=== PATIENT | male | born 1955 | race Caucasian/White ===

== ENCOUNTER 2016-11-24 22:30 | Inpatient (IN) | payer OTHER ==
[~2016-11-24] VITALS: Ht 175.3 cm; Wt 86.7 kg
[~2016-11-24 22:30] MED LIST: ALLOPURINOL100 MG PO; AMLODIPINE10 M1 PO; FOSRENOL1000 MG PO; GLIPIZIDE10 MG PO; HYDROCHLOROTH12.5 MG PO; TIMOPTIC OCUDOSE0.5% OP; TRAVATAN Z5 ML OP
[2016-11-24 23:44] LABS: BASOPHIL % 0.6 % (0-2); PLATELET COUNT 174 x10^3mcL (130-400)
[2016-11-24 23:45] LABS: RED CELL DISTRIBUTION WIDTH 15.7 % (11.5-14.5)
[2016-11-25 00:01] LABS: BILIRUBIN TOTAL 0.76 mg/dL (0.20-1.00); CALCIUM 9.2 mg/dL (8.5-10.1); CARBON DIOXIDE 25.9 mmol/L (21-32); POTASSIUM SERUM 4.1 mmol/L (3.5-5.1); TOTAL PROTEIN, SERUM 7.5 g/dL (6.4-8.2)
[2016-11-25 00:10] LABS: ALBUMIN 2.9 g/dL (3.4-5.0)
[2016-11-25 00:11] LABS: CREATININE SERUM 7.9 mg/dL (0.7-1.3)
[2016-11-25 01:55] VITALS: BP 179/76
[2016-11-25 02:18] LABS: CHOLESTEROL/HDL RATIO 3.9
[2016-11-25 02:21] LABS: T3 TOTAL 0.68 ng/mL
[2016-11-25 02:28] LABS: FREE THYROXINE INDEX 2.7 ug/dL (1.4-4.5); T4(THYROXINE) 8.1 ug/dL (4.7-13.3)
[2016-11-25 06:09] LABS: BASOPHIL % 0.4 % (0-2); PLATELET COUNT 195 x10^3mcL (130-400)
[2016-11-25 06:42] LABS: RED CELL DISTRIBUTION WIDTH 15.4 % (11.5-14.5)
[2016-11-25 06:47] LABS: CALCIUM 8.7 mg/dL (8.5-10.1); CARBON DIOXIDE 27.2 mmol/L (21-32); MAGNESIUM 3.2 mg/dL (1.8-2.4); PHOSPHOROUS 5.1 mg/dL (2.5-4.9); POTASSIUM SERUM 4.3 mmol/L (3.5-5.1)
[2016-11-25 06:49] LABS: CREATININE SERUM 8.5 mg/dL (0.7-1.3)
[2016-11-26] MEDS ORDERED: CARVEDILOL12.5 M1 PO (23:36)
[2016-11-26] MEDS ORDERED: TIMOPTIC OCUMET10 ML OU (23:36)
[2016-11-26] MEDS ORDERED: ALPRAZOLAM2 MG PO (23:39)
[2016-11-26] MEDS ORDERED: GLUCOTROL5 MG PO (23:46)
[2016-11-26] MEDS ORDERED: CARISOPRODOL350 MG PO (23:47)
== END 2016-11-25 08:30 | disposition left against medical advice (07) | DRG 602 ==
LOC: ED 22:30 → DU 11-25 01:02
PROVIDERS: Emergency Medicine; ADMIT Family Medicine
DX: L03.116 Cellulitis of left lower limb (principal); N18.6 End stage renal disease; N17.0 Acute kidney failure with tubular necrosis; I13.2 Hypertensive heart and chronic kidney disease with heart failure and with stage 5 chronic kidney disease, or end stage renal disease; E87.1 Hypo-osmolality and hyponatremia; D68.69 Other thrombophilia; E44.0 Moderate protein-calorie malnutrition; M10.9 Gout, unspecified; E11.65 Type 2 diabetes mellitus with hyperglycemia; E11.51 Type 2 diabetes mellitus with diabetic peripheral angiopathy without gangrene; H54.8 Legal blindness, as defined in USA; E03.9 Hypothyroidism, unspecified; Z99.2 Dependence on renal dialysis; Z79.84 Long term (current) use of oral hypoglycemic drugs
CPT/HCPCS: 80307; 82962; 83880; 84439; J1956; J2270; J2405; J3490; J7030; Q0092

== ENCOUNTER 2016-11-26 16:38 | Inpatient (IN) | payer OTHER ==
[~2016-11-26] VITALS: Ht 172.7 cm; Wt 89.4 kg
[2016-11-26 20:52] LABS: BASOPHIL % 0.3 % (0-2); PLATELET COUNT 215 x10^3mcL (130-400)
[2016-11-26 20:54] LABS: RED CELL DISTRIBUTION WIDTH 15.6 % (11.5-14.5)
[2016-11-26 21:02] LABS: BILIRUBIN TOTAL 0.8 mg/dL (0.20-1.00); CARBON DIOXIDE 24.1 mmol/L (21-32); POTASSIUM SERUM 5.2 mmol/L (3.5-5.1); TOTAL PROTEIN, SERUM 7.5 g/dL (6.4-8.2)
[2016-11-26 21:14] LABS: ALBUMIN 2.8 g/dL (3.4-5.0); CREATININE SERUM 11.8 mg/dL (0.7-1.3)
[2016-11-26 21:15] LABS: CK-MB 0.8 ng/mL (0-3.6)
[2016-11-26] MEDS ORDERED: TIMOPTIC OCUMET10 ML OU (23:36)
[2016-11-26] MEDS ORDERED: CARVEDILOL12.5 M1 PO (23:36)
[2016-11-26] MEDS ORDERED: ALPRAZOLAM2 MG PO (23:39)
[2016-11-26] MEDS ORDERED: GLUCOTROL5 MG PO (23:46)
[2016-11-26] MEDS ORDERED: CARISOPRODOL350 MG PO (23:47)
[2016-11-27] VITALS (7 sets, daily range): BP systolic 131–165; BP diastolic 69–91
[2016-11-27 03:35] LABS: CHOLESTEROL/HDL RATIO 4.4
[2016-11-27 03:37] LABS: T3 TOTAL 0.72 ng/mL
[2016-11-27 03:39] LABS: FREE T4 0.95 ng/dL (0.76-1.46); FREE THYROXINE INDEX 2.5 ug/dL (1.4-4.5); T4(THYROXINE) 6.4 ug/dL (4.7-13.3)
[2016-11-27 04:40] LABS: CALCIUM 8.7 mg/dL (8.5-10.1); CARBON DIOXIDE 23.3 mmol/L (21-32); MAGNESIUM 2.6 mg/dL (1.8-2.4); POTASSIUM SERUM 5.3 mmol/L (3.5-5.1)
[2016-11-27 04:44] LABS: CREATININE SERUM 12.4 mg/dL (0.7-1.3)
[2016-11-27 04:50] LABS: BASOPHIL % 0.2 % (0-2); PLATELET COUNT 193 x10^3mcL (130-400)
[2016-11-27 04:52] LABS: RED CELL DISTRIBUTION WIDTH 15.7 % (11.5-14.5)
[2016-11-28 05:33] VITALS: BP 149/78
[2016-11-28 07:46] LABS: BASOPHIL % 0.2 % (0-2); PLATELET COUNT 214 x10^3mcL (130-400)
[2016-11-28 07:50] LABS: RED CELL DISTRIBUTION WIDTH 15.8 % (11.5-14.5)
[2016-11-28 08:03] LABS: CALCIUM 8.4 mg/dL (8.5-10.1); CARBON DIOXIDE 30.3 mmol/L (21-32); MAGNESIUM 2.4 mg/dL (1.8-2.4); PHOSPHOROUS 6.8 mg/dL (2.5-4.9); POTASSIUM SERUM 4.3 mmol/L (3.5-5.1)
[2016-11-28 08:06] LABS: CREATININE SERUM 8.7 mg/dL (0.7-1.3)
[2016-11-28 09:36] VITALS: BP 149/77
[2016-11-28 12:34] VITALS: BP 148/72
[2016-11-28 16:48] VITALS: BP 162/75
[2016-11-28 21:24] VITALS: BP 172/85
[2016-11-29 05:53] VITALS: BP 181/97
[2016-11-29 06:18] LABS: BASOPHIL % 0.6 % (0-2); PLATELET COUNT 243 x10^3mcL (130-400)
[2016-11-29 06:48] LABS: RED CELL DISTRIBUTION WIDTH 15.6 % (11.5-14.5)
[2016-11-29 06:57] LABS: CARBON DIOXIDE 25.9 mmol/L (21-32); MAGNESIUM 2.1 mg/dL (1.8-2.4); PHOSPHOROUS 5.4 mg/dL (2.5-4.9); POTASSIUM SERUM 3.7 mmol/L (3.5-5.1)
[2016-11-29 07:00] LABS: CREATININE SERUM 6.7 mg/dL (0.7-1.3)
[2016-11-29 08:38] VITALS: BP 162/70
[2016-11-29] MEDS ORDERED: THERA TABS1 TAB PO (15:17)
[2016-11-29] MEDS ORDERED: LAC PO (15:19)
[2016-11-29] MEDS ORDERED: KEFLEX500 M1 PO (15:19)
[2016-11-29 15:40] VITALS: BP 127/73
[2016-11-29 15:50] VITALS: BP 127/73
[2016-11-29 15:51] VITALS: BP 127/73
== END 2016-11-29 17:05 | disposition home health service (06) | DRG 622 ==
LOC: ED 16:38 → DU 23:27 → MU 11-29 07:02
PROVIDERS: Emergency Medicine; Podiatrist Foot & Ankle Surgery; ADMIT Family Medicine
PROC: 0SBQ0ZZ Excision of Left Toe Phalangeal Joint, Open Approach (ICD-10-PCS; principal; 2016-11-27 10:00)
PROC: 0JBR0ZZ Excision of Left Foot Subcutaneous Tissue and Fascia, Open Approach (ICD-10-PCS; principal; 2016-11-27 10:00)
DX: E11.621 Type 2 diabetes mellitus with foot ulcer (principal); I50.43 Acute on chronic combined systolic (congestive) and diastolic (congestive) heart failure; I12.0 Hypertensive chronic kidney disease with stage 5 chronic kidney disease or end stage renal disease; D68.69 Other thrombophilia; L03.032 Cellulitis of left toe; N18.6 End stage renal disease; N17.0 Acute kidney failure with tubular necrosis; E11.22 Type 2 diabetes mellitus with diabetic chronic kidney disease; E11.51 Type 2 diabetes mellitus with diabetic peripheral angiopathy without gangrene; E11.65 Type 2 diabetes mellitus with hyperglycemia; E11.42 Type 2 diabetes mellitus with diabetic polyneuropathy; E11.319 Type 2 diabetes mellitus with unspecified diabetic retinopathy without macular edema; E87.5 Hyperkalemia; E87.8 Other disorders of electrolyte and fluid balance, not elsewhere classified; H54.0 Blindness, both eyes; M10.9 Gout, unspecified; Z99.2 Dependence on renal dialysis; Z68.30 Body mass index [BMI] 30.0-30.9, adult; Z79.84 Long term (current) use of oral hypoglycemic drugs; Z91.19 Patient's noncompliance with other medical treatment and regimen; F43.23 Adjustment disorder with mixed anxiety and depressed mood
CPT/HCPCS: 36600; 82962; 83880; 84439; G0378; J0360; J0696; J2250; J2270; J3010; J3490; J7030; Q0092

== ENCOUNTER → 2017-08-20 | Outpatient (CLI) | payer OTHER ==
[~2017-08-20] MED LIST changes: +ALPRAZOLAM2 MG PO; +CARISOPRODOL350 MG PO; +CARVEDILOL12.5 M1 PO; +GLUCOTROL5 MG PO; +KEFLEX500 M1 PO; +LAC PO; +THERA TABS1 TAB PO; +TIMOPTIC OCUMET10 ML OU
[2017-08-20 14:26] LABS: BASOPHIL % 0.3 % (0-2); PLATELET COUNT 214 x10^3mcL (130-400); RED CELL DISTRIBUTION WIDTH 16.3 % (11.5-14.5)
[2017-08-20 14:34] LABS: CALCIUM 8.6 mg/dL (8.5-10.1); CARBON DIOXIDE 27.2 mmol/L (21-32)
[2017-08-20 16:33] LABS: CREATININE SERUM 8.3 mg/dL (0.7-1.3)
== END | disposition home or self-care (01) ==
LOC: LB 13:36
DX: Z01.812 Encounter for preprocedural laboratory examination (principal); N52.8 Other male erectile dysfunction; Z79.01 Long term (current) use of anticoagulants

== ENCOUNTER 2017-08-23 11:35 | Inpatient (IN) | payer OTHER ==
[~2017-08-23] VITALS: Ht 172.7 cm; Wt 87.8 kg
[2017-08-23 12:54] LABS: BASOPHIL % 0.4 % (0-2); PLATELET COUNT 201 x10^3mcL (130-400)
[2017-08-23 12:56] LABS: RED CELL DISTRIBUTION WIDTH 16.8 % (11.5-14.5)
[2017-08-23 13:07] LABS: BILIRUBIN TOTAL 0.7 mg/dL (0.20-1.00); CALCIUM 8.7 mg/dL (8.5-10.1); CARBON DIOXIDE 29.9 mmol/L (21-32); POTASSIUM SERUM 3.4 mmol/L (3.5-5.1); TOTAL PROTEIN, SERUM 7.3 g/dL (6.4-8.2)
[2017-08-23 13:08] LABS: ALBUMIN 2.5 g/dL (3.4-5.0)
[2017-08-23 15:20] LABS: MAGNESIUM 2.2 mg/dL (1.8-2.4); PHOSPHOROUS 2.9 mg/dL (2.5-4.9)
[2017-08-23 15:21] LABS: CHOLESTEROL/HDL RATIO 3.3
[2017-08-23 15:26] LABS: T3 TOTAL 0.52 ng/mL
[2017-08-23 15:29] VITALS: BP 109/78
[2017-08-23 15:30] LABS: FREE T4 1.22 ng/dL (0.76-1.46); FREE THYROXINE INDEX 2.4 ug/dL (1.4-4.5); T4(THYROXINE) 6.2 ug/dL (4.7-13.3)
[2017-08-23] MEDS ORDERED: AMLODIPINE BESYL5 M2 PO (17:35)
[2017-08-23 21:32] VITALS: BP 140/76
[2017-08-24 05:46] VITALS: BP 138/66
[2017-08-24 07:29] LABS: CALCIUM 8.2 mg/dL (8.5-10.1); CARBON DIOXIDE 28.1 mmol/L (21-32)
[2017-08-24 07:31] LABS: MAGNESIUM 2.4 mg/dL (1.8-2.4); PHOSPHOROUS 4.2 mg/dL (2.5-4.9)
[2017-08-24 07:34] LABS: CREATININE SERUM 6.4 mg/dL (0.7-1.3)
[2017-08-24 08:09] LABS: BASOPHIL % 0.2 % (0-2); PLATELET COUNT 193 x10^3mcL (130-400); RED CELL DISTRIBUTION WIDTH 16.3 % (11.5-14.5)
[2017-08-24 09:30] VITALS: BP 141/69
[2017-08-24 11:14] VITALS: Ht 172.7 cm; Wt 87.8 kg
[2017-08-24 13:50] VITALS: BP 119/64
[2017-08-24 21:38] VITALS: BP 132/69
[2017-08-25 05:07] VITALS: BP 148/65
[2017-08-25 06:58] LABS: BASOPHIL % 0.3 % (0-2); PLATELET COUNT 215 x10^3mcL (130-400)
[2017-08-25 07:01] LABS: RED CELL DISTRIBUTION WIDTH 16.4 % (11.5-14.5)
[2017-08-25 07:37] LABS: CALCIUM 8.8 mg/dL (8.5-10.1); CARBON DIOXIDE 22.7 mmol/L (21-32); POTASSIUM SERUM 4.4 mmol/L (3.5-5.1)
[2017-08-25 07:47] LABS: CREATININE SERUM 7.9 mg/dL (0.7-1.3)
[2017-08-25 08:57] VITALS: BP 129/65
[2017-08-25 12:54] VITALS: BP 116/80
[2017-08-25 20:45] VITALS: BP 139/76
[2017-08-26 05:40] VITALS: BP 138/85
== END 2017-08-26 08:30 | disposition left against medical advice (07) | DRG 299 ==
LOC: ED 11:35 → DU 14:07
PROVIDERS: Emergency Medicine; Family Medicine; Family Medicine Sports Medicine
PROC: 0Y9M0ZZ Drainage of Right Foot, Open Approach (ICD-10-PCS; principal; 2017-08-23)
DX: E11.52 Type 2 diabetes mellitus with diabetic peripheral angiopathy with gangrene (principal); A48.0 Gas gangrene; N17.0 Acute kidney failure with tubular necrosis; I50.43 Acute on chronic combined systolic (congestive) and diastolic (congestive) heart failure; N18.6 End stage renal disease; E43 Unspecified severe protein-calorie malnutrition; M86.9 Osteomyelitis, unspecified; I13.2 Hypertensive heart and chronic kidney disease with heart failure and with stage 5 chronic kidney disease, or end stage renal disease; E87.1 Hypo-osmolality and hyponatremia; B95.61 Methicillin susceptible Staphylococcus aureus infection as the cause of diseases classified elsewhere; B96.89 Other specified bacterial agents as the cause of diseases classified elsewhere; E11.69 Type 2 diabetes mellitus with other specified complication; E11.65 Type 2 diabetes mellitus with hyperglycemia; E11.42 Type 2 diabetes mellitus with diabetic polyneuropathy; E11.22 Type 2 diabetes mellitus with diabetic chronic kidney disease; M20.42 Other hammer toe(s) (acquired), left foot; M20.41 Other hammer toe(s) (acquired), right foot; M10.9 Gout, unspecified; H54.7 Unspecified visual loss; E87.6 Hypokalemia; D64.9 Anemia, unspecified; Z79.4 Long term (current) use of insulin; Z16.24 Resistance to multiple antibiotics; Z99.2 Dependence on renal dialysis; Z68.29 Body mass index [BMI] 29.0-29.9, adult
CPT/HCPCS: 82962; 83880; 84439; J1956; J3370; J3490; J7030; J7040; J7050; Q0092

== ENCOUNTER 2018-09-01 21:32 | Emergency (ER) | payer OTHER ==
[~2018-09-01] VITALS: Ht 170.2 cm; Wt 89.4 kg
[~2018-09-01 21:32] MED LIST changes: +AMLODIPINE BESYL5 M2 PO
[2018-09-01 22:08] VITALS: Ht 170.2 cm; Wt 89.4 kg
[2018-09-01 23:51] VITALS: BP 138/105
== END 2018-09-01 23:51 | disposition home or self-care (01) ==
LOC: ED 21:32
DX: S40.022A Contusion of left upper arm, initial encounter (principal); I10 Essential (primary) hypertension; E11.9 Type 2 diabetes mellitus without complications; Z99.2 Dependence on renal dialysis; Z98.890 Other specified postprocedural states; Z88.0 Allergy status to penicillin; W20.8XXA Other cause of strike by thrown, projected or falling object, initial encounter; Y93.89 Activity, other specified; Y92.89 Other specified places as the place of occurrence of the external cause; Y99.8 Other external cause status
CPT/HCPCS: J2270; Q0092

== ENCOUNTER 2019-07-27 20:58 | Emergency (ER) | payer OTHER ==
[2019-07-27 21:05] VITALS: Ht 172.7 cm
[2019-07-27 22:41] VITALS: BP 123/60
== END 2019-07-27 22:41 | disposition home or self-care (01) ==
LOC: ED 20:58
DX: S01.01XA Laceration without foreign body of scalp, initial encounter (principal); J45.909 Unspecified asthma, uncomplicated; I10 Essential (primary) hypertension; E11.9 Type 2 diabetes mellitus without complications; M10.9 Gout, unspecified; Z88.0 Allergy status to penicillin; Z99.2 Dependence on renal dialysis; V00.811A Fall from moving wheelchair (powered), initial encounter; Y93.89 Activity, other specified; Y92.89 Other specified places as the place of occurrence of the external cause; Y99.8 Other external cause status